=== PATIENT | female | born 1980 | race Caucasian/White ===

== ENCOUNTER 2019-07-03 18:40 | Emergency (ER) | payer OTHER ==
[~2019-07-03] VITALS: Ht 170.2 cm; Wt 100.0 kg
[2019-07-03 18:53] VITALS: TEMP 98.6
[2019-07-03] MEDS ORDERED: ARMOUR THYROID30 MG PO (20:22)
[2019-07-03] MEDS ORDERED: VIIBRYD40 MG PO (20:23)
[2019-07-03] MEDS ORDERED: CRESTOR 10MG10 MG PO (20:23)
[2019-07-03] MEDS ORDERED: ALDACTONE 100M100 MG PO (20:24)
[2019-07-03] MEDS ORDERED: ZOFRAN 4MG T4 MG/TAB PO (22:24)
[2019-07-03] MEDS ORDERED: NORCO 325 MG-51 TAB PO (22:24)
[2019-07-03 22:41] VITALS: BP 126/82; PULSE 80
== END 2019-07-03 22:41 | disposition home or self-care (01) ==
LOC: COL.ER 18:40
DX: S82.141A Displaced bicondylar fracture of right tibia, initial encounter for closed fracture (principal); W18.39XA Other fall on same level, initial encounter; Y92.009 Unspecified place in unspecified non-institutional (private) residence as the place of occurrence of the external cause
CPT/HCPCS: J1170; L1846